=== PATIENT | female | born 1960 | race Caucasian/White ===

== ENCOUNTER 2019-11-04 00:30 | Day surgery (SDC) | payer BC, SELFPAY ==
[2019-10-29 13:51] VITALS: BMI 39.2
[2019-11-04 09:16] VITALS: BP 147/89; PULSE 84; RESP 18; TEMP 36.5; O2SAT 95; BMI 38.2
[2019-11-04] MEDS: LACTATED RINGERS 1,000 ML 150 ML IV CONT (09:25)
[2019-11-04 09:38] LABS: Glucose Point of Care 109 (65-105)
--- NOTE | 2019-11-04 10:46 | WPDANESEPPF ---
Anes - Initial Pre Proc Eval Procedure: Operation Date: 11/04/19 10:00 Proposed Procedures p Screening Colonoscopy - Gurinder Marte MD Date/Time: 11/04/19 10:46 Surgeon: Gurinder Marte MD Pre Op Diagnosis: Neoplasm Screening Patient Data Age: 58 Gender: F Height: 5 ft 5 in Weight: 104.3 kg Last Vital Signs Temp 97.7 F 11/04/19 09:16 Pulse 84 11/04/19 09:16 Resp 18 11/04/19 09:16 BP 147/89 H 11/04/19 09:16 Pulse Ox 95 11/04/19 09:16 Allergies Allergy/AdvReac Type Severity Reaction Status Date / Time No Known Allergies Allergy Unverified 10/29/19 13:49 Home Medications Medication Instructions Recorded Confirmed Type amlodipine 5 mg PO DAILY 10/29/19 10/29/19 History citalopram 10 mg PO DAILY 10/29/19 10/29/19 History lisinopril-hydrochlorothiazide 12.5 - 20 tablet PO DAILY 10/29/19 10/29/19 History metformin 500 mg PO BID 10/29/19 11/04/19 History omeprazole 40 mg PO DAILY 10/29/19 10/29/19 History aspirin [Adult Low Dose Aspirin] 81 mg PO DAILY 11/04/19 11/04/19 History Laboratory Tests 11/04/19 09:30 POC Capillary Glucose 109 mg/dl mg/dl (65-105) Patient hx anesthesia problems: none Family hx anesthesia problems: none PMFSH Past Medical History Medical History (Updated 11/04/19 @ 10:46 by Dorian Gordillo MD) Anxiety Diabetes Hypertension Obesity Family History Family History (Updated 03/31/16 @ 23:19 by DOCTOR UNKNOWN) Mother Hypertension Family history of diabetes mellitus in first degree relative Family history of malignant neoplasm of breast in first degree relative Social History Social History (Updated 11/04/19 @ 10:44 by Dorian Gordillo MD) Smoking status: Former smoker Alcohol intake: current Anes - Eval Final PreProcedure Day of Procedure 11/04/19 10:46 Patient weight: obese Heart: regular rate and rhythm Lungs: clear to auscultation Airway: Mallampati scale class II Neurological: alert and oriented Last oral intake: >/= 8 hours ASA classification: III Emergent: no Anesthetic plan: proceed Anesthesia type and monitoring: general GIVS and standard monitoring Informed Consent: The patient's anesthetic plan and its attendant risks and benefits were discussed with the patient/family/POA. Questions were solicited and answers provided to the satisfaction of the patient/family/POA.
--- NOTE | 2019-11-04 10:50 | PM.HPGS ---
History of Present Illness History of Present Illness Consent: Risks, benefits, and alternatives have been discussed and questions answered. Patient agrees to proceed with procedure. Chief complaint: Neoplasm Screening Narrative: Deidre Lux is a 58 year old female here for her first screening colonoscopy Review of Systems Constitutional: Constitutional: Denies headache(s) and Denies weakness Eyes: Eyes: Denies blurry vision ENT: Reports Normal hearing present, Denies headache(s) and Denies neck pain Cardiovascular: Cardiovascular: Denies chest pain and Denies dyspnea Respiratory: Respiratory: Denies dyspnea Gastrointestinal: Gastrointestinal: Reports no additional gastrointestinal complaints Genitourinary: Genitourinary: Denies dysuria Musculoskeletal: Musculoskeletal: Denies neck pain Integumentary/Breasts: Skin/Breast: Denies dry skin Neurologic: Reports Normal hearing present, Denies headache(s) and Denies weakness Psychiatric: Psychiatric: Denies anxiety Endocrine: Endocrine: Denies change in body appearance Hematologic/Lymphatic: Hematologic/Lymphatic: Denies easy bleeding Allergic/Immunologic: Allergic/Immunologic: Denies urticaria PMF Past Medical History Medical History (Updated 11/04/19 @ 10:51 by Gurinder Marte MD) Anxiety Colon cancer screening Diabetes Hypertension Obesity Family History Family History (Updated 03/31/16 @ 23:19 by DOCTOR UNKNOWN) Mother Hypertension Family history of diabetes mellitus in first degree relative Family history of malignant neoplasm of breast in first degree relative Social History Social History (Updated 11/04/19 @ 10:44 by Dorian Gordillo MD) Smoking status: Former smoker Alcohol intake: current Meds Home Medications and Allergies Home Medications Medication Instructions Recorded Confirmed Type amlodipine 5 mg PO DAILY 10/29/19 10/29/19 History citalopram 10 mg PO DAILY 10/29/19 10/29/19 History lisinopril-hydrochlorothiazide 12.5 - 20 tablet PO DAILY 10/29/19 10/29/19 History metformin 500 mg PO BID 10/29/19 11/04/19 History omeprazole 40 mg PO DAILY 10/29/19 10/29/19 History aspirin [Adult Low Dose Aspirin] 81 mg PO DAILY 11/04/19 11/04/19 History Allergies Allergy/AdvReac Type Severity Reaction Status Date / Time No Known Allergies Allergy Unverified 10/29/19 13:49 Vital Signs Vital Signs - 24 hr 11/04/19 09:16 Temperature 97.7 F Pulse Rate 84 Respiratory Rate 18 Blood Pressure 147/89 H Pulse Oximetry 95 Exam Const: General: comfortable and no acute distress HENMT: General nose exam: Normal nares present Eyes: General: appearance normal, both eyes and all related structures Neck: Neck: no JVD Resp: Auscultation: clear to auscultation bilaterally Cardio: Rate: regular rate Rhythm: regular rhythm GI: Inspection: non-distended GI Palp: Yes Soft to palpation Skin: General skin exam: normal color Neuro: General: gait normal Speech: normal speech Extrem: General: normal to inspection Psych: Mental Status: mental status grossly normal Assessment and Plan Assessment and plan (1) Colon cancer screening: Code(s): Z12.11 - Encounter for screening for malignant neoplasm of colon Status: Acute Assessment and Plan: will proceed with colonoscopy (2) Hypertension: Qualifiers: Hypertension type: essential hypertension Qualified Code(s): I10 - Essential (primary) hypertension Code(s): I10 - Essential (primary) hypertension Status: Acute
[2019-11-04 11:07] VITALS: BP 118/80; PULSE 75; RESP 18; O2SAT 99
[2019-11-04 11:17] VITALS: BP 133/92; PULSE 72; RESP 16; O2SAT 96
[2019-11-04 11:27] VITALS: BP 153/85; PULSE 65; RESP 18; O2SAT 100
[2019-11-04 11:32] VITALS: BP 118/80; PULSE 75; RESP 18; O2SAT 99
== END 2019-11-04 11:45 | disposition home or self-care (01) ==
PROVIDERS: PCP Family Medicine Sports Medicine; Visit Provider Internal Medicine Gastroenterology
PROC: 0DJD8ZZ Inspection of Lower Intestinal Tract, Via Natural or Artificial Opening Endoscopic (ICD-10-PCS; CPT 45378; principal; 2019-11-04 10:00)
DX: Z12.11 Encounter for screening for malignant neoplasm of colon (principal); D12.5 Benign neoplasm of sigmoid colon; K64.8 Other hemorrhoids; I10 Essential (primary) hypertension; E11.9 Type 2 diabetes mellitus without complications; F41.9 Anxiety disorder, unspecified; Z79.84 Long term (current) use of oral hypoglycemic drugs; Z79.82 Long term (current) use of aspirin; E66.9 Obesity, unspecified; Z68.38 Body mass index [BMI] 38.0-38.9, adult
CPT/HCPCS: 45385; 88305; J2704; J7120

== ENCOUNTER 2019-12-25 01:00 | Outpatient (RCR) | payer BC, SELFPAY ==
[2019-11-11 14:59] VITALS: BMI 37.7
[2019-11-11 15:00] VITALS: BMI 37.7
[2019-12-25 13:56] VITALS: BMI 37.7
[2019-12-25 13:59] VITALS: BMI 37.7
== END 2020-02-09 23:59 | disposition home or self-care (01) ==
LOC: ANHDMC 01:00
PROVIDERS: PCP Family Medicine Sports Medicine
DX: E11.9 Type 2 diabetes mellitus without complications (principal); Z71.3 Dietary counseling and surveillance; Z71.89 Other specified counseling
CPT/HCPCS: 97802; 97803; G0108

== ENCOUNTER 2020-03-02 15:00 | Outpatient (RCR) | payer BC, SELFPAY | END 2020-03-04 13:24 | disposition home or self-care (01) | LOC: ANHDMC 15:00 | PROVIDERS: PCP Family Medicine Sports Medicine | DX: E11.9 Type 2 diabetes mellitus without complications (principal); Z71.89 Other specified counseling | CPT/HCPCS: G0108 ==

== ENCOUNTER 2023-08-01 14:27 | Emergency (ER) | payer BC, SELFPAY ==
--- NOTE | ~2023-08-01 | CT_ITS ---
EXAMINATION: CT abdomen pelvis w con DATE: 08/01/2023 16:50 INDICATION: Constipation. TECHNIQUE: Computed tomography (CT) of the abdomen and pelvis was performed with 100 mL Omnipaque 350 intravenous contrast. Automated exposure control and iterative reconstruction technique were employe d. The dose-length product was 1275.30 mGy-cm. COMPARISON: None. FINDINGS: The visualized portions of the lung bases demonstrate mild atelectasis. Calcified bilateral lung nodules are consistent with old granulomatous disease. No pleural effusion. The heart size is n ormal. There are coronary artery calcifications. No pericardial effusion. There is diffuse hepatic st eatosis. The gallbladder is normal. There is moderate splenomegaly. The pancreas, adrenal glands, and kidneys are normal. There is diverticulosis of the colon without evidence of diverticulitis. There a re no dilated loops of bowel. The appendix is normal. There is calcified atherosclerosis of the aorta and many of the other arteries. There are no pathologically enlarged lymph nodes. There is no free i ntraperitoneal fluid. There is a total left hip arthroplasty. There is lumbar dextroscoliosis and sev ere spondylosis. IMPRESSION: 1. Moderate splenomegaly. 2. Diffuse hepatic steatosis. Reviewed, dictated and finalized at location A. NG LINE WORKER
[2023-08-01 14:30] VITALS: BP 171/77; PULSE 124; RESP 16; TEMP 36.5; O2SAT 96
[2023-08-01 16:26] LABS: Hematocrit 31.8 % (37.0-47.0); Hemoglobin 9.9 g/dL (12.0-15.0); Immature Platelet Fraction Pct 22.4 % (0.9-11.2); Mean Corpuscular HGB Conc 31.1 g/dl (32-36); Mean Corpuscular Hemoglobin 32.9 pg (26-34); Mean Corpuscular Volume 105.6 fl (80-100); Mean Platelet Volume 12.3 fl (7.4-10.4); Platelet Count Result 52 k/mm3 (150-375); Red Blood Count 3.01 M/mm3 (4.2-5.4); Red Cell Distribution Width 17.7 % (11.5-14.5)
[2023-08-01 16:30] VITALS: BP 150/82; PULSE 97; RESP 16; O2SAT 96
--- NOTE | 2023-08-01 16:30 | ED.GENADULT ---
HPI - General Adult General Chief complaint: Unspecified Stated complaint: abdominal bloating, left ab pain Time Seen by Provider: 08/01/23 15:55 History of Present Illness HPI narrative: 62-year-old female presenting to the emergency department for evaluation of constipation. Patient states her Thanksgiving she was having some issues with diarrhea and then the next day she began developing issues with constipation. Patient states the last few days she has only passed small amounts of stool. Patient feels that she is constipated. Patient does report some left upper quadrant abdominal pain. Patient denies any associated nausea or vomiting. Patient denies any blood in her stool. Patient denies any previous history of abdominal surgery or small-bowel obstruction. The patient states that she did take some laxatives without improvement. Related Data Home Medications Medication Instructions Recorded Confirmed amlodipine 5 mg tablet 5 mg PO DAILY 10/29/19 10/29/19 citalopram 10 mg tablet 10 mg PO DAILY 10/29/19 10/29/19 lisinopril 20 12.5 - 20 tablet PO DAILY 10/29/19 10/29/19 mg-hydrochlorothiazide 12.5 mg tablet metformin 500 mg tablet 500 mg PO BID 10/29/19 11/04/19 omeprazole 40 mg capsule,delayed 40 mg PO DAILY 10/29/19 10/29/19 release aspirin 81 mg tablet,delayed 81 mg PO DAILY 11/04/19 11/04/19 release (Adult Low Dose Aspirin) Allergies Allergy/AdvReac Type Severity Reaction Status Date / Time No Known Allergies Allergy Verified 08/01/23 14:28 Review of Systems Review of Systems: All systems reviewed & are unremarkable except as noted in HPI and below PMFSH Past Medical History Medical History (Updated 08/02/23 @ 00:00 by Background Gina) Anxiety Colon cancer screening Diabetes Hypertension Obesity Family History Family History (Updated 03/31/16 @ 23:19 by DOCTOR UNKNOWN) Mother Hypertension Family history of diabetes mellitus in first degree relative Family history of malignant neoplasm of breast in first degree relative Social History Social History (Updated 11/04/19 @ 10:44 by Dorian Gordillo MD) Smoking status: Former smoker Alcohol intake: current Spiritual care concerns: No Exam Narrative: APPEARANCE: Well appearing, no pain, no distress, well-nourished. HEAD: normocephalic, atraumatic. EYES: PERRLA/EOMI, conjunctivae clear. NOSE: Normal no drainage EARS:TMS clear with good light reflex. THROAT: Pharynx clear, no exudate. NECK: Supple. No adenopathy, no masses. RESPIRATORY: Airway patent, respirations nonlabored. Clear to auscultation bilaterally, no rales, rhonchi, wheezing. CARDIOVASCULAR: Regular rate and rhythm without murmurs rubs or gallops. ABDOMINAL: Soft, nontender, nondistended, normal bowel sounds MUSCULOSKELETAL: Moves all extremities. Strength/ROM intact, No edema, No calf tenderness. NEURO: Alert. Cranial nerves II through XII intact. Grossly intact SKIN: Warm, dry. Normal Color Course Course Emergency Course: 62-year-old female who presents to the ED for evaluation for constipation. CT scan showed no evidence of obstruction. Labs were concerning for leukemia and this was discussed with hematology/oncology. Flow cytometry was ordered. Patient was updated on the results of the imaging and plan for additional workup to rule out leukemia. All questions concerns were addressed patient was well-appearing at time of discharge from the emergency department. Patient will have outpatient follow-up with Dr. Lam. Vital Signs Vital signs: Vital Signs Temperature 97.7 F 08/01/23 14:30 Pulse Rate 124 H 08/01/23 14:30 Respiratory Rate 16 08/01/23 14:30 Blood Pressure 171/77 H 08/01/23 14:30 Pulse Oximetry 96 08/01/23 14:30 Temperature 97.7 F 08/01/23 14:30 Pulse Rate 100 08/01/23 18:10 Respiratory Rate 16 08/01/23 18:10 Blood Pressure 164/81 H 08/01/23 18:10 Pulse Oximetry 96 08/01/23 18:10
[2023-08-01 16:34] LABS: INR 1.2; Prothrombin Time 15.9 Seconds (11.1-14.7)
[2023-08-01 16:35] LABS: Alanine Aminotransferase 50 U/L (6-35); Albumin Level 3.9 g/dL (3.5-5.1); Alkaline Phosphatase 102 U/L (38-126); Anion Gap 10 mmol/L (8-16); Aspartate Amino Transferase 56 U/L (14-36); Bilirubin,Total 0.6 mg/dL (0.2-1.3); Blood Urea Nitrogen 16 mg/dL (7-17); Calcium 9.5 mg/dL (8.4-10.2); Carbon Dioxide 27 mmol/L (22-30); Chloride 103 mmol/L (98-107); Estimated Glomerular Filt Rate 50; Glucose 194 mg/dL (65-110); Lipase 41 U/L (23-300); Partial Thromboplastin Time 33.6 SECONDS (22.3-36.8); Potassium 2.9 mmol/L (3.4-5.0); Sodium 140 mmol/L (137-145)
[2023-08-01 16:36] LABS: Lactic Acid Reflex 2.5 mmol/L (0.7-2.0)
[2023-08-01] MEDS: POTASSIUM CHLORIDE 20 MEQ PACKET (FOR LIQUID) 40 MEQ PO (17:00)
[2023-08-01] MEDS: SODIUM CHLORIDE 0.9% IV 1,000 ML 999 ML IV CONT (17:00)
[2023-08-01 17:13] LABS: Appearance Urine Turbid (Clear); Bacteria Urine 2+ /hpf; Bilirubin Urine 2+ (Negative); Blood Urine Negative (Negative); Color Urine Dark Yellow (Yellow); Glucose Urine UA Negative (Negative); Hyaline Casts Urine Present /lpf; Ketones Urine 1+ mg/dL (Negative); Leukocyte Esterase Ur 1+ LEU/UL (Negative); Nitrate Urine Negative (Negative); Non Pathogenic Casts >20; Protein Urine 2+ mg/dL (Negative); RBC Urine 0-2 /hpf (0-2); Specific Grav Ur 1.027 (1.001-1.035); Squamous Epithelial Cell Urine Many /hpf (Few); pH Urine 5.5 (5.0-9.0)
[2023-08-01 17:19] LABS: White Blood Count 189.9 K/mm3 (4.5-10.0)
[2023-08-01 17:26] LABS: Lymphocytes Absolute Manual 22.78 K/mm3 (1.1-4.5); Monocytes Absolute Manual 155.71 K/mm3 (0.1-0.90); Monocytes Percent Manual 82 % (3-9); Neutrophils Percent Manual 6 % (46-73); Platelet Estimate Decreased (Adequate); Schistocytes None Seen (NORMAL); Total Cells Counted 100
[2023-08-01 17:27] LABS: Anisocytosis 2+ (NORMAL); Hypochromasia 1+ (NORMAL)
[2023-08-01 17:30] VITALS: BP 158/80; PULSE 99; RESP 16; O2SAT 95
[2023-08-01 17:36] LABS: Add Urine Microscopic? YES
[2023-08-01 18:10] VITALS: BP 164/81; PULSE 100; RESP 16; O2SAT 96
[2023-08-01 19:21] LABS: Reflex Lactic Acid Yes or No Add Lactic
== END 2023-08-01 18:10 | disposition home or self-care (01) ==
PROVIDERS: Emergency Provider Emergency Medicine; PCP Family Medicine Sports Medicine
DX: D72.829 Elevated white blood cell count, unspecified (principal); D69.6 Thrombocytopenia, unspecified; I10 Essential (primary) hypertension; E11.9 Type 2 diabetes mellitus without complications; E03.9 Hypothyroidism, unspecified; E66.9 Obesity, unspecified; F41.9 Anxiety disorder, unspecified; Z87.891 Personal history of nicotine dependence; Z79.82 Long term (current) use of aspirin; Z79.84 Long term (current) use of oral hypoglycemic drugs; K76.0 Fatty (change of) liver, not elsewhere classified; R16.1 Splenomegaly, not elsewhere classified
CPT/HCPCS: 36415; 74177; 80053; 81001; 83605; 83690; 85025; 85055; 85610; 85730; 87086; 87147; 87181; 87186; 88184; 88302; 96360; 99284; A9270; J7030; Q9967

== ENCOUNTER 2023-08-06 15:25 | Outpatient (CLI) | payer BC, SELFPAY ==
[2023-08-06 15:43] LABS: Hematocrit 28.3 % (37.0-47.0); Mean Corpuscular HGB Conc 31.8 g/dl (32-36); Mean Corpuscular Hemoglobin 33.1 pg (26-34); Platelet Count Result 26 k/mm3 (150-375); Red Blood Count 2.72 M/mm3 (4.2-5.4); Red Cell Distribution Width 17.4 % (11.5-14.5)
[2023-08-06 15:47] LABS: White Blood Count 199.2 K/mm3 (4.5-10.0)
[2023-08-06 16:00] LABS: Band Neutrophils Percent 6 % (0-6); Lymphocytes Absolute Manual 15.93 K/mm3 (1.1-4.5); Metamyelocytes Percent 11 %; Monocytes Absolute Manual 19.92 K/mm3 (0.1-0.90); Monocytes Percent Manual 10 % (3-9); Myelocytes Percent 43 %; Neutrophils Absolute Manual 51.79 K/mm3 (1.7-7.2); Neutrophils Percent Manual 20 % (46-73); Platelet Estimate Decreased (Adequate); Promyelocytes Percent 2 %; Total Cells Counted 100
[2023-08-06 16:01] LABS: Anisocytosis 1+ (NORMAL); Microcytosis 1+ (NORMAL); Schistocytes None Seen (NORMAL)
[2023-08-06 20:14] LABS: Alanine Aminotransferase 42 U/L (6-35); Alkaline Phosphatase 120 U/L (38-126); Anion Gap 12 mmol/L (8-16); Aspartate Amino Transferase 56 U/L (14-36); Bilirubin,Total 0.9 mg/dL (0.2-1.3); Blood Urea Nitrogen 24 mg/dL (7-17); Calcium 9.3 mg/dL (8.4-10.2); Carbon Dioxide 22 mmol/L (22-30); Chloride 102 mmol/L (98-107); Estimated Glomerular Filt Rate 20; Glucose 199 mg/dL (65-110); Potassium 3.6 mmol/L (3.4-5.0); Sodium 136 mmol/L (137-145)
[2023-08-06 20:15] LABS: Lactate Dehydrogenase 1692 U/L (120-246)
== END 2023-08-06 15:26 | disposition home or self-care (01) ==
LOC: ANHLAB 15:27
PROVIDERS: PCP Family Medicine Sports Medicine; Visit Provider Internal Medicine Hematology & Oncology
DX: D72.829 Elevated white blood cell count, unspecified (principal)
CPT/HCPCS: 36415; 80053; 83615; 85025; 88184

== ENCOUNTER 2023-10-09 16:35 | Emergency (ER) | payer BC, SELFPAY ==
--- NOTE | ~2023-10-09 | XR_ITS ---
EXAM: XR toe 1st RT min 2V DATE: 10/09/2023 18:05 HISTORY: rule out deep space infection . COMPARISON: None available. FINDINGS: Normal mineralization. No fracture or dislocation. No lytic or blastic lesion. Mild first MTP joint degenerative change. No erosion or periosteal change. Soft tissues within normal limits. IMPRESSION: No acute osseous finding in the right first toe. No subcutaneous emphysema. Reviewed, dictated and finalized at location K. ING SUPERVISOR IMPRESSION: No acute osseous finding in the right first toe. No subcutaneous em physema.
[2023-10-09 16:55] VITALS: BP 125/64; PULSE 106; RESP 20; TEMP 36.7; O2SAT 100
--- NOTE | 2023-10-09 17:32 | ED.GENADULT ---
HPI - General Adult General Chief complaint: Extremity Problem,Nontraumatic <Augusto Montes PA-C - Last Filed: 10/09/23 17:51> Stated complaint: R. toe infection <Augusto Montes PA-C - Last Filed: 10/09/23 17:51> Time Seen by Provider: 10/09/23 19:09 <Augusto Montes PA-C - Last Filed: 10/09/23 17:51> Focused HPI: This is a 61-year-old female with PMH of leukemia currently undergoing chemo treatment who is presenting to the ED for chief complaint of right great toe pain x2 days. Reports redness and swelling spreading from distal tele to more proximal now. Reports swelling and significant pain in the area. Denies fevers, chills, nausea, vomiting. States she follows with [facility] Other PMH of diabetes type 2 with last A1c reported at 5.9%. GENERAL: Well-appearing, well-nourished, and in no acute distress. HEAD: Normocephalic, atraumatic. CHEST: Clear to auscultation. No respiratory distress. HEART: Regular rate and rhythm. NEURO: Alert and oriented x3. Skin: Moderate erythema to the right great toe. Moderate swelling and tenderness as well. No drainage. The toenail seems to be ingrown medially. Patient screened in triage and initial orders placed. Additional care and disposition to be based upon diagnostic testing and treatment. <Augusto Montes PA-C - Last Filed: 10/09/23 17:51> Source: patient <Augusto Montes PA-C - Last Filed: 10/09/23 17:51> Mode of arrival: ambulatory <KASH Curry Last Filed: 10/09/23 17:51> Limitations: no limitations <KASH Curry Last Filed: 10/09/23 17:51> History of Present Illness HPI narrative: Patient is 62-year-old female who presents emergency department with chief complaint of right great toe pain patient reports that she has leukemia and is currently receiving chemotherapy and is followed by the [facility] and slough was seen in the office yesterday had a blood transfusion and platelet transfusion and reports that she has an appointment at 10:00 a.m. tomorrow the patient reports he is on 500 mg of Levaquin daily and noticed that she has an area of her toenail that is ingrown. <Berhane Townsend MD - Last Filed: 10/09/23 20:07> Related Data Home medications: Home Medications Medication Instructions Recorded Confirmed amlodipine 5 mg tablet 5 mg PO DAILY 10/29/19 10/29/19 citalopram 10 mg tablet 10 mg PO DAILY 10/29/19 10/29/19 lisinopril 20 12.5 - 20 tablet PO DAILY 10/29/19 10/29/19 mg-hydrochlorothiazide 12.5 mg tablet metformin 500 mg tablet 500 mg PO BID 10/29/19 11/04/19 omeprazole 40 mg capsule,delayed 40 mg PO DAILY 10/29/19 10/29/19 release aspirin 81 mg tablet,delayed 81 mg PO DAILY 11/04/19 11/04/19 release (Adult Low Dose Aspirin) <Augusto Montes PA-C - Last Filed: 10/09/23 17:51> Allergies/adverse reactions: Allergies Allergy/AdvReac Type Severity Reaction Status Date / Time No Known Allergies Allergy Verified 08/01/23 14:28 <Augusto Montes PA-C - Last Filed: 10/09/23 17:51> Review of Systems Review of Systems: A 10 system review of systems was completed on the patient and is negative except for what is stated in the HPI. Nursing and ancillary documentation was reviewed. <Berhane Townsend MD - Last Filed: 10/09/23 20:07> [facility] Past Medical History Medical History: Medical History Anxiety Colon cancer screening Diabetes Hypertension Obesity <Augusto Montes PA-C - Last Filed: 10/09/23 17:51> Family History Family History: Family History Mother Hypertension Family history of diabetes mellitus in first degree relative Family history of malignant neoplasm of breast in first degree relative <Augusto Montes PA-C - Last Filed: 10/09/23 17:51> Social History Social History: Soci
[2023-10-09 17:53] LABS: Hematocrit 21.2 % (37.0-47.0); Hemoglobin 7.2 g/dL (12.0-15.0); Immature Platelet Fraction Pct 4.7 % (0.9-11.2); Mean Corpuscular Volume 82.5 fl (80-100); Mean Platelet Volume 11.1 fl (7.4-10.4); Platelet Count Result 27 k/mm3 (150-375); Red Blood Count 2.57 M/mm3 (4.2-5.4)
[2023-10-09 18:05] LABS: Lactic Acid Reflex 1.7 mmol/L (0.7-2.0)
[2023-10-09 18:07] LABS: Alanine Aminotransferase 17 U/L (6-35); Albumin Level 3.4 g/dL (3.5-5.1); Alkaline Phosphatase 66 U/L (38-126); Anion Gap 7 mmol/L (8-16); Aspartate Amino Transferase 16 U/L (14-36); Bilirubin,Total 0.8 mg/dL (0.2-1.3); Blood Urea Nitrogen 14 mg/dL (7-17); Calcium 8.9 mg/dL (8.4-10.2); Carbon Dioxide 19 mmol/L (22-30); Chloride 110 mmol/L (98-107); Estimated CRCL calculation 59 ml/min; Estimated Glomerular Filt Rate > 60; Glucose 143 mg/dL (65-110); Potassium 3.5 mmol/L (3.4-5.0); Sodium 136 mmol/L (137-145)
[2023-10-09 18:31] LABS: White Blood Count 0.5 K/mm3 (4.5-10.0)
[2023-10-09 18:45] LABS: Lymphocytes Absolute Manual 0.37 K/mm3 (1.1-4.5); Lymphocytes Percent Manual 75 % (18-44); Monocytes Absolute Manual 0.12 K/mm3 (0.1-0.90); Monocytes Percent Manual 25 % (3-9); Total Cells Counted 20
[2023-10-09 18:46] LABS: Ovalocytes 1+ (NORMAL); Platelet Estimate Decreased (Adequate); Schistocytes None Seen (NORMAL)
[2023-10-09 19:01] VITALS: BP 131/75; PULSE 95; RESP 16; O2SAT 100
--- NOTE | 2023-10-09 19:22 | PC.NURSE ---
Assumed care of pt from JB Contreras at this time. Pt resting comfortably in bed on monitor, call light within reach.
[2023-10-09 20:20] VITALS: BP 128/64; PULSE 81; RESP 13; O2SAT 100
[2023-10-09] MEDS: levoFLOXacin 250 MG TABLET PO (20:42)
== END 2023-10-09 20:43 | disposition home or self-care (01) ==
PROVIDERS: Physician Assistant; Emergency Provider Emergency Medicine; PCP Family Medicine Sports Medicine
DX: L60.0 Ingrowing nail (principal); F41.9 Anxiety disorder, unspecified; I10 Essential (primary) hypertension; E11.9 Type 2 diabetes mellitus without complications; Z79.84 Long term (current) use of oral hypoglycemic drugs
CPT/HCPCS: 36415; 73660; 80053; 83605; 85025; 85055; 86140; 99283; A9270